=== PATIENT | female | born 1955 | race Caucasian/White ===

== ENCOUNTER → 2016-05-11 | Outpatient (CLI) | payer BC | LOC: MAMO 07:29 | DX: Z12.31 Encounter for screening mammogram for malignant neoplasm of breast (principal) | CPT/HCPCS: G0202 ==

== ENCOUNTER → 2020-08-16 | Outpatient (CLI) | payer MEDICARE, OTHER | LOC: KOH-I 14:21 | DX: J32.9 Chronic sinusitis, unspecified (principal); G50.1 Atypical facial pain | CPT/HCPCS: 70486 ==